=== PATIENT | male | born 1975 | race Caucasian/White ===

== ENCOUNTER 2017-02-25 18:14 | Emergency (ER) | payer OTHER ==
[2017-02-25 18:15] VITALS: BMI 33.9
[2017-02-25 18:24] VITALS: TEMP 97.8
[2017-02-25] MEDS ORDERED: DiphenhydrAMINE 50 mg/ml Inj IVP STA (19:38)
[2017-02-25] MEDS ORDERED: DiphenhydrAMINE 50 mg/ml Inj ONE (19:48)
--- NOTE | 2017-02-25 20:06 | C.PDOC ---
History Of Present Illness 41 year old male presents to the ED with complaints of swelling to his upper lip and right side of his face today. Patient states he has been having intermittent hives since November and was seen 11/30/16 for similar complaints. He never followed up and does not know what the allergen is. He did not take anything for the symptoms and denies SOB, tongue swelling, throat swelling, vomiting, or any other complaints at this time. Time Seen by Provider: 02/25/17 19:17 Chief Complaint (Nursing): Allergic Reaction History Per: Patient History/Exam Limitations: no limitations Onset/Duration Of Symptoms: Hrs Current Symptoms Are (Timing): Still Present Possible Cause: Unknown Associated Symptoms: Swelling. denies: Skin Rash, Dizziness, Itching Home/EMS Treatment: None Severity: Mild Past Medical History Reviewed: Historical Data, Nursing Documentation, Vital Signs Vital Signs: Last Vital Signs Temp 97.8 F 02/25/17 18:20 Pulse 85 02/25/17 18:20 Resp 18 02/25/17 18:20 BP 143/82 02/25/17 18:20 Pulse Ox 94 L 02/25/17 20:11 - Medical History PMH: No Chronic Diseases Family History: States: Unknown Family Hx - Social History Hx Alcohol Use: No Hx Substance Use: No - Immunization History Hx Tetanus Toxoid Vaccination: No Hx Influenza Vaccination: No Hx Pneumococcal Vaccination: No Review Of Systems Except As Marked, All Systems Reviewed And Found Negative. Constitutional: Positive for: Other (+Right face swelling). Negative for: Fever , Chills ENT: Positive for: Mouth Swelling (+Upper lip swelling). Negative for: Throat Swelling Cardiovascular: Negative for: Chest Pain Respiratory: Negative for: Shortness of Breath Gastrointestinal: Negative for: Vomiting Skin: Negative for: Rash Physical Exam - Physical Exam Appears: Non-toxic, No Acute Distress Skin: Normal Color, Warm, Dry, No Rash Head: Atraumatic, Normacephalic Eye(s): bilateral: Normal Inspection Oral Mucosa: Moist, No Other (No elevation to the floor of the mouth) Tongue: Normal Appearing, No Swelling Lips: Swelling (+Swelling to the upper lip) Teeth: Normal Dentition, No Other (No dental mass) Gingiva: Normal Appearing Throat: Normal, No Erythema, No Exudate Neck: Supple Chest: Symmetrical Cardiovascular: Rhythm Regular Respiratory: Normal Breath Sounds, No Accessory Muscle Use Extremity: Normal ROM Neurological/Psych: Oriented x3, Normal Speech, Normal Cognition ED Course And Treatment O2 Sat by Pulse Oximetry: 94 (Room air) Pulse Ox Interpretation: Normal (low normal) Progress Note: Patient treated with Benadry, Pepcid, and Solu-Medrol. Reassessment Condition: Improved (Pt reports no acute distress, facial swelling is improving. No tongue swelling, or SOB, wheezes. Returnb precautions discussed and understood by pt) Disposition Counseled Patient/Family Regarding: Diagnosis, Need For Followup, Rx Given - Disposition Disposition: HOME/ ROUTINE Disposition Time: 20:50 Condition: STABLE Additional Instructions: [facility]IFER TODOS [facility] RETURN TO ER IF TONGUE SWELLING , DIFFICULTY BREATHING OR WORSE Prescriptions: DiphenhydrAMINE [Benadryl] 50 mg PO Q6 #20 cap Famotidine [Pepcid] 20 mg PO DAILY #10 tab predniSONE [Prednisone] 40 mg PO DAILY #10 tab Instructions: Allergies (ED) Print Language: GUYANESE - Clinical Impression Clinical Impression: Allergic reaction - PA / TELEPHONE ADVICE NURSE / Resident Statement MD/DO has reviewed & agrees with the documentation as recorded. - Scribe Statement The provider has reviewed the documentation as recorded by the Scribe Toi Fry. All medical record entries made by the Scribe were at my direction and personally dictated by me. I have reviewed the chart and agree that the record accurately reflects my personal performance of the history, physical exam, medical decision making, and the department course for this patient. I have also personally directed, reviewed, and agree with the discharge instructions and disposition.
[2017-02-25 20:50] VITALS: BP 129/73; PULSE 78; RESP 16
[2017-02-25 21:02] VITALS: O2SAT 94
== END 2017-02-25 21:11 | disposition home or self-care (01) ==
LOC: C.ER 18:14
DX: T78.40XA Allergy, unspecified, initial encounter (principal); X58.XXXA Exposure to other specified factors, initial encounter
CPT/HCPCS: 96374; 96375; 99284; J1200; J2930